=== PATIENT | female | born 1940 | race Caucasian/White ===

== ENCOUNTER 2017-07-30 20:40 | Emergency (ER) | payer MEDICARE, MEDICAID ==
[~2017-07-30] VITALS: Ht 162.6 cm; Wt 75.9 kg
[~2017-07-30 20:40] MED LIST: ACID1GRA3 PO; ASPI-638 PO; BRIM5DRO2 OP; CAPT1TAB5 PO; CAPT50TA3; CLIN300C8 PO; DIVA500T2 PO; DOCU-131 PO; FLUO10CA13; FLUO40CA9 PO; HYDR1TAB12; HYDR25PO5; HYDR50TA13 PO; LATA2.5D3 EACHEYE; LEVO100T5 PO; LEVO125T5 PO; LEVOTHYROXINE PO; OXYGEN INH; [UNRECOGNIZED DRUG - CODE] PO
[2017-07-30 21:09] LABS: HEMATOCRIT 45.6 % (34.6-47.8); HEMOGLOBIN 15.5 g/dL (11.7-16.4); WHITE BLOOD COUNT 9.5 x10^3/uL (3.4-10)
[2017-07-30 21:20] LABS: BLOOD UREA NITROGEN 26 mg/dL (7-18)
[2017-07-30 21:32] LABS: IS PT STATUS REG ER OR PRE ER? YES
[2017-07-30] MEDS ORDERED: POTASSIUM CHLORIDE 20 MEQ TAB.ER.PRT ONE (21:39)
[2017-07-30 21:49] VITALS: BP 120/78
[2017-07-30] MEDS ORDERED: POTASSIUM CHLORIDE 20 MEQ TAB.ER.PRT PO ONE (22:00)
== END 2017-07-30 21:56 | disposition home or self-care (01) ==
LOC: ED 21:50
DX: I12.9 Hypertensive chronic kidney disease with stage 1 through stage 4 chronic kidney disease, or unspecified chronic kidney disease (principal); N18.9 Chronic kidney disease, unspecified; E78.5 Hyperlipidemia, unspecified; E87.6 Hypokalemia; J20.9 Acute bronchitis, unspecified
CPT/HCPCS: 36415; 71010; 80048; 82040; 84484; 85025; 99285

== ENCOUNTER 2018-03-07 02:19 | Emergency (ER) | payer MEDICARE, MEDICAID ==
[~2018-03-07] VITALS: Ht 162.6 cm; Wt 75.0 kg
[2018-03-07] MEDS ORDERED: DIPH,PERTUSS(ACELL),TET VAC/PF 0.5 ML IM-VACC ONE (03:42)
[2018-03-07] MEDS ORDERED: AMOXICILLIN/CLAV 875-125MG TABLET ONE (03:42)
[2018-03-07] MEDS ORDERED: DIPH,PERTUSS(ACELL),TET VAC/PF NC IM-VACC ONE (04:00)
[2018-03-07] MEDS ORDERED: AMOXICILLIN/CLAV 875-125MG TABLET PO ONE (04:00)
[2018-03-07 04:45] VITALS: BP 133/79
== END 2018-03-07 05:18 | disposition home or self-care (01) ==
LOC: ED 04:00
DX: S61.451A Open bite of right hand, initial encounter (principal); L03.113 Cellulitis of right upper limb; W55.01XA Bitten by cat, initial encounter; Y93.89 Activity, other specified; Y92.89 Other specified places as the place of occurrence of the external cause; Y99.8 Other external cause status
CPT/HCPCS: 90471; 90715; 99284

== ENCOUNTER 2018-03-08 02:02 | Inpatient (IN) | payer MEDICARE, MEDICAID ==
[~2018-03-08] VITALS: Ht 162.6 cm; Wt 74.0 kg
[2018-03-08] MEDS ORDERED: AMPICILLIN/SULBACTAM 3 GM in SODIUM CHLORIDE 0.9% 100 ML IV ONE (03:00)
[2018-03-08] MEDS ORDERED: MORPHINE SULFATE 4 MG/ML, 1ML IVPush PRN (03:00)
[2018-03-08] MEDS ORDERED: ONDANSETRON 2MG/ML, 2ML IVPush PRN ×2 (03:00→04:00)
[2018-03-08] MEDS ORDERED: ONDANSETRON 2MG/ML, 2ML ONE (03:06)
[2018-03-08] MEDS ORDERED: MORPHINE SULFATE 4 MG/ML, 1ML ONE (03:06)
[2018-03-08 03:19] LABS: BASOPHILS # (AUTO) 0.05 x10^3/uL (0-0.1); BASOPHILS % (AUTO) 0 % (0-1); EOSINOPHILS # (AUTO) 0.09 x10^3/uL (0-0.4); EOSINOPHILS % (AUTO) 1 % (1-7); LYMPHOCYTES # (AUTO) 1.22 x10^3/uL (1-3.4); LYMPHOCYTES % (AUTO) 8 % (22-44); MD NO; MEAN CORPUSCULAR HEMOGLOBIN 29.9 pg (27.0-34.8); MEAN CORPUSCULAR HGB CONC 33.4 g/dL (32.4-35.8); MEAN CORPUSCULAR VOLUME 89.5 fL (80-100); MEAN PLATELET VOLUME 8.6 fL (7.4-10.4); MONOCYTES # (AUTO) 1.27 x10^3/uL (0.2-0.8); MONOCYTES % (AUTO) 8 % (2-9); NEUTROPHILS # (AUTO) 12.79 x10^3/uL (1.8-6.8); NEUTROPHILS % (AUTO) 83 % (42-75); PLATELET COUNT 302 x10^3/uL (130-400); RED BLOOD COUNT 4.67 x10^6/uL (3.82-5.3); RED CELL DISTRIBUTION WIDTH 13.4 % (9.6-15.2)
[2018-03-08 03:28] LABS: ALBUMIN 3.4 g/dL (3.4-5.0); ANION GAP 9 mmol/L (5-15); CALCIUM 9.4 mg/dL (8.5-10.1); CHLORIDE 109 mmol/L (98-107); CREATININE 1.17 mg/dL (0.55-1.02)
[2018-03-08] MEDS ORDERED: DOCUSATE 100 MG CAPSULE PO PRN (04:00)
[2018-03-08] MEDS ORDERED: ONDANSETRON ODT 4 MG PO PRN (04:00)
[2018-03-08] MEDS ORDERED: hydrALAzine 20 MG/ML, 1ML IVPush PRN (04:00)
[2018-03-08] MEDS ORDERED: HYDROcodone/APAP 5/325 TABLET PO PRN (04:00)
[2018-03-08] MEDS ORDERED: ENALAPRILAT 1.25 MG/ML, 2ML IVPush PRN (04:00)
[2018-03-08] MEDS ORDERED: BISACODYL 10 MG SUPP PR PRN (04:00)
[2018-03-08 04:15] VITALS: BP 135/68
[2018-03-08] MEDS: [UNRECOGNIZED DRUG - OTHER] MC SCH ×2 (04:30→12:30)
[2018-03-08] MEDS: HCTZ MC SCH ×2 (04:30→12:30)
[2018-03-08] MEDS: EYE MC SCH ×2 (04:30→12:30)
[2018-03-08] MEDS: ENOXAPARIN 40 MG/0.4 ML SQ SCH (04:43)
[2018-03-08 06:30] VITALS: BP 136/71
[2018-03-08] MEDS: CAPTOPRIL HOMEMEDPO SCH (09:00)
[2018-03-08] MEDS: [UNRECOGNIZED DRUG - OTHER] HOMEMEDPO SCH (09:00)
[2018-03-08] MEDS: HYDROCHLOROTHIAZIDE HOMEMEDPO SCH (09:00)
[2018-03-08] MEDS: FLUOXETINE HCL 20 MG CAPSULE PO SCH (09:00)
[2018-03-08] MEDS: TEMPLATE NON-FORMULARY MED. (Brimonidine Tartrate/Timolol (Combigan Eye Drops) 1 DROP) OP SCH ×2 (09:00→20:59)
[2018-03-08] MEDS: DIVALPROEX 500 MG TABLET.DR PO SCH (09:00)
[2018-03-08] MEDS: hydrOXyzine 50MG TABLET PO SCH ×3 (09:00→21:00)
[2018-03-08] MEDS: AMPICILLIN/SULBACTAM 3 GM in SODIUM CHLORIDE 0.9% 100 ML IV SCH ×3 (09:38→20:53)
[2018-03-08] MEDS: LEVOTHYROXINE 100 MCG TABLET PO SCH (09:42)
[2018-03-08 12:20] VITALS: BP 81/43
[2018-03-08 13:13] VITALS: BP 91/52
[2018-03-08 19:05] VITALS: BP 111/64
[2018-03-08] MEDS ORDERED: LATANOPROST OPHTH 0.005%, 2.5ML EACHEYE SCH (21:00)
[2018-03-08] MEDS ORDERED: OXYGEN INH SCH (21:00)
[2018-03-08] MEDS ORDERED: TEMPLATE NON-FORMULARY MED. (Brimonidine Tartrate/Timolol (Combigan Eye Drops) 1 DROP) OP SCH (21:09)
[2018-03-09 00:45] VITALS: BP 125/66
[2018-03-09] MEDS: AMPICILLIN/SULBACTAM 3 GM in SODIUM CHLORIDE 0.9% 100 ML IV SCH ×2 (03:19→10:57)
[2018-03-09] MEDS: ENOXAPARIN 40 MG/0.4 ML SQ SCH (03:40)
[2018-03-09 05:03] LABS: BASOPHILS # (AUTO) 0.04 x10^3/uL (0-0.1); BASOPHILS % (AUTO) 0 % (0-1); EOSINOPHILS # (AUTO) 0.46 x10^3/uL (0-0.4); EOSINOPHILS % (AUTO) 5 % (1-7); LYMPHOCYTES # (AUTO) 2.24 x10^3/uL (1-3.4); LYMPHOCYTES % (AUTO) 22 % (22-44); MD NO; MEAN CORPUSCULAR HEMOGLOBIN 29.7 pg (27.0-34.8); MEAN CORPUSCULAR HGB CONC 32.7 g/dL (32.4-35.8); MEAN CORPUSCULAR VOLUME 90.7 fL (80-100); MEAN PLATELET VOLUME 8.8 fL (7.4-10.4); MONOCYTES # (AUTO) 1.29 x10^3/uL (0.2-0.8); MONOCYTES % (AUTO) 13 % (2-9); NEUTROPHILS # (AUTO) 6.18 x10^3/uL (1.8-6.8); NEUTROPHILS % (AUTO) 61 % (42-75); PLATELET COUNT 251 x10^3/uL (130-400); RED BLOOD COUNT 4.01 x10^6/uL (3.82-5.3)
[2018-03-09 07:20] VITALS: BP 149/67
[2018-03-09] MEDS: HYDROCHLOROTHIAZIDE HOMEMEDPO SCH (09:00)
[2018-03-09] MEDS: CAPTOPRIL HOMEMEDPO SCH (09:00)
[2018-03-09] MEDS ORDERED: HYDROcodone/APAP 5/325 TABLET PO ONE (09:00)
[2018-03-09] MEDS: [UNRECOGNIZED DRUG - OTHER] HOMEMEDPO SCH (09:00)
[2018-03-09] MEDS: DIVALPROEX 500 MG TABLET.DR PO SCH (09:00)
[2018-03-09] MEDS: FLUOXETINE HCL 20 MG CAPSULE PO SCH (09:00)
[2018-03-09] MEDS: hydrOXyzine 50MG TABLET PO SCH (10:57)
[2018-03-09] MEDS: LEVOTHYROXINE 100 MCG TABLET PO SCH (10:58)
== END 2018-03-09 13:58 | disposition home or self-care (01) | DRG 603 ==
LOC: ED 03:02 → EDIP 03:17 → 3NE 03:50
PROVIDERS: ADMIT Family Medicine; ATTEND Family Medicine
DX: L03.113 Cellulitis of right upper limb (principal); F31.9 Bipolar disorder, unspecified; G89.29 Other chronic pain; M54.9 Dorsalgia, unspecified; E03.9 Hypothyroidism, unspecified; E10.42 Type 1 diabetes mellitus with diabetic polyneuropathy; E78.5 Hyperlipidemia, unspecified; G47.30 Sleep apnea, unspecified; H40.9 Unspecified glaucoma; I50.9 Heart failure, unspecified; I25.10 Atherosclerotic heart disease of native coronary artery without angina pectoris; J44.9 Chronic obstructive pulmonary disease, unspecified; I11.0 Hypertensive heart disease with heart failure; I25.2 Old myocardial infarction; W55.01XA Bitten by cat, initial encounter; Y93.89 Activity, other specified; Y92.89 Other specified places as the place of occurrence of the external cause; Y99.8 Other external cause status; Z90.710 Acquired absence of both cervix and uterus
CPT/HCPCS: 36415; 80048; 82040; 85025; 87040; 96365; J0295; J1650

== ENCOUNTER 2018-08-14 16:05 | Emergency (ER) | payer MEDICARE, MEDICAID ==
[~2018-08-14] VITALS: Ht 162.6 cm; Wt 72.8 kg
[2018-08-14 16:40] LABS: BASOPHILS # (AUTO) 0.09 x10^3/uL (0-0.1); BASOPHILS % (AUTO) 1 % (0-1); EOSINOPHILS % (AUTO) 1 % (1-7); LYMPHOCYTES # (AUTO) 2.01 x10^3/uL (1-3.4); LYMPHOCYTES % (AUTO) 23 % (22-44); MD NO; MEAN CORPUSCULAR HEMOGLOBIN 28.9 pg (27.0-34.8); MEAN CORPUSCULAR HGB CONC 33.1 g/dL (32.4-35.8); MEAN CORPUSCULAR VOLUME 87.2 fL (80-100); MEAN PLATELET VOLUME 8.6 fL (7.4-10.4); MONOCYTES # (AUTO) 0.79 x10^3/uL (0.2-0.8); MONOCYTES % (AUTO) 9 % (2-9); NEUTROPHILS # (AUTO) 5.61 x10^3/uL (1.8-6.8); NEUTROPHILS % (AUTO) 65 % (42-75); PLATELET COUNT 351 x10^3/uL (130-400); RED BLOOD COUNT 5.09 x10^6/uL (3.82-5.3); RED CELL DISTRIBUTION WIDTH 15.9 % (9.6-15.2)
[2018-08-14 16:49] LABS: ANION GAP 11 mmol/L (5-15); CALCIUM 10.6 mg/dL (8.5-10.1); CHLORIDE 105 mmol/L (98-107); CREATININE 1.25 mg/dL (0.55-1.02)
[2018-08-14 16:50] LABS: ALBUMIN 3.9 g/dL (3.4-5.0)
[2018-08-14 17:06] LABS: RAPID INFLUENZA A Negative (Negative); RAPID INFLUENZA B Negative (Negative)
[2018-08-14] MEDS ORDERED: POTASSIUM CHLORIDE 20 MEQ TAB.ER.PRT ONE (17:24)
[2018-08-14] MEDS ORDERED: POTASSIUM CHLORIDE 20 MEQ TAB.ER.PRT PO ONE (17:30)
[2018-08-14 17:37] VITALS: BP 152/78
== END 2018-08-14 17:39 | disposition home or self-care (01) ==
LOC: ED 17:25
DX: J00 Acute nasopharyngitis [common cold] (principal); B34.9 Viral infection, unspecified; I10 Essential (primary) hypertension; F41.1 Generalized anxiety disorder; F31.9 Bipolar disorder, unspecified; E03.9 Hypothyroidism, unspecified; E78.5 Hyperlipidemia, unspecified; G47.30 Sleep apnea, unspecified; Z90.49 Acquired absence of other specified parts of digestive tract; Z90.710 Acquired absence of both cervix and uterus; Z87.448 Personal history of other diseases of urinary system
CPT/HCPCS: 36415; 71046; 80048; 82040; 85025; 87400; 99284

== ENCOUNTER 2019-01-24 02:43 | Emergency (ER) | payer MEDICARE, MEDICAID ==
[~2019-01-24] VITALS: Ht 162.6 cm; Wt 73.0 kg
[~2019-01-24 02:43] MED LIST changes: -HYDR1TAB12; +HYDR1TAB13
[2019-01-24 02:45] VITALS: BP 184/99
--- NOTE | 2019-01-24 02:56 | NUR ---
FIRST CONTACT WITH PT. PT STATES @1600 "MOVED MY ARM WRONG AND SOMETHING SLIPPED." STATES R ARM PAIN SINCE THEN. +CMS. FULL ROM IN TRIAGE. PT'S AOX4. RESPS EVEN AND UNLABORED. PA AT BEDSIDE TO ASSESS AT THIS TIME. PT DENIES N/V/HAT AT THIS TIME. AWAITING ORDERS NOW.
--- NOTE | 2019-01-24 03:12 | NUR ---
PT IN XRAY NOW.
--- NOTE | 2019-01-24 03:20 | NUR ---
PT BACK TO ROOM FROM XRAY NOW.
--- NOTE | 2019-01-24 04:04 | NUR ---
PT GIVEN DC INSTRUCTIONS AND SCRIPT. PT EDUCATED REGARDING DC MEDICATION. PT'S AOX4. RESPS EVEN AND UNLABORED. PT AMB TO DC WITH STEADY GAIT. NO ACUTE DISTRESS AT DC.
== END 2019-01-24 04:05 | disposition home or self-care (01) ==
LOC: ED 03:08
DX: S46.001A Unspecified injury of muscle(s) and tendon(s) of the rotator cuff of right shoulder, initial encounter (principal); F41.9 Anxiety disorder, unspecified; E03.9 Hypothyroidism, unspecified; F31.9 Bipolar disorder, unspecified; I25.10 Atherosclerotic heart disease of native coronary artery without angina pectoris; I10 Essential (primary) hypertension; Z90.49 Acquired absence of other specified parts of digestive tract; Z90.710 Acquired absence of both cervix and uterus; X50.1XXA Overexertion from prolonged static or awkward postures, initial encounter; Y93.89 Activity, other specified; Y92.89 Other specified places as the place of occurrence of the external cause; Y99.8 Other external cause status
CPT/HCPCS: 99283